=== PATIENT | male | born 1985 | race Caucasian/White ===

== ENCOUNTER 2020-04-07 10:37 | Emergency (ER) | payer SELFPAY ==
--- NOTE | 2020-04-07 11:05 | EDM.PDOC ---
ED HPI GENERAL MEDICAL PROBLEM - General Chief Complaint: Abdominal Pain Stated Complaint: ABDOMINAL SWELLING Time Seen by Provider: 04/07/20 10:38 Source of Information: Reports: Patient History Limitations: Reports: No Limitations - History of Present Illness INITIAL COMMENTS - FREE TEXT/NARRATIVE: HISTORY AND PHYSICAL: History of present illness: Patient is a 35-year-old male who presents to the emergency room with complaints of abdominal and lower extremity swelling. 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 He states he has been on "water pills" to help control any swelling he has experienced previously (unsure of name/dose). He recently moved here from [place] and ran out of these prescriptions 2 weeks ago. Since not having this medication available to him he noticed the swelling to his abdomen and bilateral lower extremities. Patient denies any fever, chills, headache, change in vision, syncope or near syncope. Denies any chest pain, back pain, shortness of breath or cough. Denies any abdominal pain, nausea, vomiting, diarrhea, constipation or dysuria. Has not noted any blood in urine or stool. Patient has been eating and drinking appropriately. Review of systems: As per history of present illness and below otherwise all systems reviewed and negative. Past medical history: As per history of present illness and as reviewed below otherwise noncontributory. Surgical history: As per history of present illness and as reviewed below otherwise noncontributory. Social history: See social history for further information Family history: As per history of present illness and as reviewed below otherwise noncontributory. Physical exam: General: Well-developed and well-nourished 35-year-old male. Alert and oriented. Nontoxic appearing and in no acute distress. HEENT: Atraumatic, normocephalic, pupils equal and reactive bilaterally, negative for conjunctival pallor or scleral icterus, mucous membranes moist, throat clear, neck supple, nontender, trachea midline. No drooling or trismus noted. No meningeal signs. No hot potato voice noted. Lungs: Right side is diminished to auscultation, breath sounds equal bilaterally , chest nontender. Breathe easy. Heart: S1S2, regular rate and rhythm without overt murmur Abdomen: Semi-firm, moderately distended/ascites, mild generalized tenderness. Midline scar noted to abdomen with a upper abdominal midline hernia. Negative for costovertebral tenderness. Pelvis: Stable nontender. Genitourinary/Rectal: Deferred. Skin: Healed linear midline scar noted to abdomen (substernal to suprapubic). Intact, warm, dry. No lesions or rashes noted. Extremities: Atraumatic, moves all extremities per self without difficulty or deficits, negative for cords or calf pain. +2 pitting edema to bilateral lower extremities, ankle/foot. Neurovascular unremarkable. Neuro: Awake, alert, oriented. Cranial nerves II through XII unremarkable. Cerebellum unremarkable. Motor and sensory unremarkable throughout. Exam nonfocal. Notes: Dr Epps directly involved in patient care. Nursing staff was able to get a hold of the patient's pharmacy in [place] to confirm his medication list which was last filled in December 2019. He was taking Lasix 40 mg once daily in spironolactone [address] shows bilateral pleural effusions worse on the right side. Mild right bilateral atelectasis. Fairly severe ascites. Findings of cirrhosis within the liver. Poorly seen spleen which may have been resected (patient has had splenectomy). Ill-defined varicosities believed to be present. Calcified in the area of the portal vein and splenic vein possibly due to old calcified clot. Dr Epps assessed patient after diagnostics have returned. Feels this patient needs IR for ascites tap; which I agree with. Dr Solomon, KIMBERLEY PRINCE at [facility] in [place] was consulted and he is agreeable to accepting this patient. This information was shared with the patient and he is hesitant for transfer stating he does not want to leave town and is concerned he may not have a ride back. I did request that he call family and discuss his ER visit today. The risks of leaving AGAINST MEDICAL ADVICE were thoroughly reviewed with the patient. He accepts those risks and does sign out AGAINST MEDICAL ADVICE. I will refill his Lasix and spironolactone. Patient was positive for nitrates in his urine, Cipro prescribed- urine culture added. He states he will see his primary care provider next week and/or return to the emergency room if his symptoms worsen. Diagnostics: CBC, CMP, Ammonia, UA, Abd/Pelvis CT, INR Therapeutics: Lasix Prescription: Lasix Spironolactone Cipro Impression: Ascites Cirrhosis Bilateral Pleural effusion UTI Left AMA Plan: Patient left AMA Definitive disposition and diagnosis as appropriate pending reevaluation and review of above. Abdominal Pain Pain Score (Numeric/FACES): 2 - Related Data Allergies Allergy/AdvReac Type Severity Reaction Status Date / Time amoxicillin Allergy Hives Verified 04/07/20 10:58 hydromorphone [From Dilaudid] Allergy Cannot Verified 04/07/20 10:58 Remember Penicillins Allergy Hives Verified 04/07/20 10:58 Sulfa (Sulfonamide Allergy Hives Verified 04/07/20 10:58 Antibiotics) Home Meds: Home Meds Ciprofloxacin HCl [Cipro] 500 mg PO BID 7 Days #14 tablet 04/07/20 [Rx] Furosemide [Lasix] 40 mg PO DAILY #30 tablet 04/07/20 [Rx] Spironolactone [Aldactone] 25 mg PO DAILY #30 tab 04/07/20 [Rx] Water Pill? 04/07/20 [History] ED ROS GENERAL - Review of Systems Review Of Systems: Comprehensive ROS is negative, except as noted in HPI. ED EXAM, GI/ABD - Physical Exam Exam: See Below (See dictation) Course - Vital Signs Last Recorded V/S: Last Vital Signs Temp 97.1 F 04/07/20 11:04 Pulse 88 04/07/20 12:08 Resp 18 04/07/20 12:08 BP 130/72 04/07/20 12:08 Pulse Ox 96 04/07/20 12:08 - Orders/Labs/Meds Orders: Active Orders 24 hr Category Date Time Status CULTURE URINE [RM] Stat Lab 04/07/20 11:52 Received Labs: Laboratory Tests 04/07/20 04/07/20 04/07/20 Range/Units 11:31 11:31 11:31 WBC 9.03 (4.0-11.0) K/uL RBC 3.71 L (4.50-5.90) M/uL Hgb 12.9 L (13.0-17.0) g/dL Hct 36.9 L (38.0-50.0) % MCV 99.5 H (80.0-98.0) fL MCH 34.8 H (27.0-32.0) pg MCHC 35.0 (31.0-37.0) g/dL RDW Std Deviation 56.8 (28.0-62.0) fl RDW Coeff of Santi 16 H (11.0-15.0) % Plt Count 118 L (150-400) K/uL MPV 10.80 (7.40-12.00) fL Add Manual Diff YES Neutrophils % (Manual) 61 (48.0-80.0) % Lymphocytes % (Manual) 21 (16.0-40.0) % Monocytes % (Manual) 15 (0.0-15.0) % Eosinophils % (Manual) 3 (0.0-7.0) % Nucleated RBC % 0.0 /100WBC Absolute Seg Neuts 5.5 (1.4-5.7) Lymphocytes # (Manual) 1.9 (0.6-2.4) Monocytes # (Manual) 1.4 H (0.0-0.8) Eosinophils # (Manual) 0.3 (0.0-0.7) Nucleated RBCs # 0 K/uL INR Sodium 133 L (136-148) mmol/L Potassium 3.4 L (3.5-5.1) mmol/L Chloride 100 (98-107) mmol/L Carbon Dioxide 29.6 (21.0-32.0) mmol/L BUN 5 L (7.0-18.0) mg/dL Creatinine 0.8 (0.8-1.3) mg/dL Est Cr Clr Drug Dosing 138.76 mL/min Estimated GFR (MDRD) > 60.0 ml/min Glucose 93 (74-106) mg/dL Calcium 7.6 L (8.5-10.1) mg/dL Total Bilirubin 3.0 H (0.2-1.0) mg/dL AST 56 H (15-37) IU/L ALT 27 (14-63) IU/L Alkaline Phosphatase 160 H (46-116) U/L Ammonia 35 (19-54) ug/dL Total Protein 7.0 (6.4-8.2) g/dL Albumin 1.9 L (3.4-5.0) g/dL Globulin 5.1 H (2.6-4.0) g/dL Albumin/Globulin Ratio 0.4 L (0.9-1.6) Urine Color Urine Appearance Urine pH (5.0-8.0) Ur Specific Cammal (1.001-1.035) Urine Protein (NEGATIVE) mg/dL Urine Glucose (UA) (NEGATIVE) mg/dL Urine Ketones (NEGATIVE) mg/dL Urine Occult Blood (NEGATIVE) Urine Nitrite (NEGATIVE) Urine Bilirubin (NEGATIVE) Urine Ictotest Urine Urobilinogen (<2.0) EU/dL Ur Leukocyte Esterase (NEGATIVE) Urine RBC (0-2/HPF) Urine WBC (0-5/HPF) Ur Epithelial Cells (NONE-FEW) Urine Bacteria (NEGATIVE) Urine Mucus (NONE-MOD) 04/07/20 04/07/20 Range/Units 11:31 11:52 WBC (4.0-11.0) K/uL RBC (4.50-5.90) M/uL Hgb (13.0-17.0) g/dL Hct (38.0-50.0) % MCV (80.0-98.0) fL MCH (27.0-32.0) pg MCHC (31.0-37.0) g/dL RDW Std Deviation (28.0-62.0) fl RDW Coeff of Santi (11.0-15.0) % Plt Count (150-400) K/uL MPV (7.40-12.00) fL Add Manual Diff Neutrophils % (Manual) (48.0-80.0) % Lymphocytes % (Manual) (16.0-40.0) % Monocytes % (Manual) (0.0-15.0) % Eosinophils % (Manual) (0.0-7.0) % Nucleated RBC % /100WBC Absolute Seg Neuts (1.4-5.7) Lymphocytes # (Manual) (0.6-2.4) Monocytes # (Manual) (0.0-0.8) Eosinophils # (Manual) (0.0-0.7) Nucleated RBCs # K/uL INR 1.39 Sodium (136-148) mmol/L Potassium (3.5-5.1) mmol/L Chloride (98-107) mmol/L Carbon Dioxide (21.0-32.0) mmol/L BUN (7.0-18.0) mg/dL Creatinine (0.8-1.3) mg/dL Est Cr Clr Drug Dosing mL/min Estimated GFR (MDRD) ml/min Glucose (74-106) mg/dL Calcium (8.5-10.1) mg/dL Total Bilirubin (0.2-1.0) mg/dL AST (15-37) IU/L ALT (14-63) IU/L Alkaline Phosphatase (46-116) U/L Ammonia (19-54) ug/dL Total Protein (6.4-8.2) g/dL Albumin (3.4-5.0) g/dL Globulin (2.6-4.0) g/dL Albumin/Globulin Ratio (0.9-1.6) Urine Color ORANGE Urine Appearance CLEAR Urine pH 6.5 (5.0-8.0) Ur Specific Cammal 1.015 (1.001-1.035) Urine Protein NEGATIVE (NEGATIVE) mg/dL Urine Glucose (UA) NEGATIVE (NEGATIVE) mg/dL Urine Ketones NEGATIVE (NEGATIVE) mg/dL Urine Occult Blood TRACE-LYSED H (NEGATIVE) Urine Nitrite POSITIVE H (NEGATIVE) Urine Bilirubin MODERATE H (NEGATIVE) Urine Ictotest POSITIVE Urine Urobilinogen >=8.0 H (<2.0) EU/dL Ur Leukocyte Esterase SMALL H (NEGATIVE) Urine RBC 0-1 (0-2/HPF) Urine WBC 0-2 (0-5/HPF) Ur Epithelial Cells FEW (NONE-FEW) Urine Bacteria FEW (NEGATIVE) Urine Mucus LIGHT (NONE-MOD) Meds: Medications Discontinued Medications Generic Name Dose Route Start Last Admin Trade Name Freq PRN Reason Stop Dose Admin Furosemide 40 mg 04/07/20 11:13 04/07/20 11:59 Lasix PO 04/07/20 11:14 40 mg ONETIME ONE Administration Departure - Departure Time of Disposition: 13:34 Disposition: Against Medical Advice 07 Clinical Impression: Pleural effusion, bilateral, Urinary tract infection in male, Left against medical advice Cirrhosis of liver Qualifiers: Hepatic cirrhosis type: alcoholic cirrhosis Ascites presence: with ascites Qualified Code(s): K70.31 - Alcoholic cirrhosis of liver with ascites Ascites Qualifiers: Ascites type: due to alcoholic cirrhosis Qualified Code(s): K70.31 - Alcoholic cirrhosis of liver with ascites - Discharge Information Prescriptions: Ciprofloxacin HCl [Cipro] 500 mg PO BID 7 Days #14 tablet Furosemide [Lasix] 40 mg PO DAILY #30 tablet Spironolactone [Aldactone] 25 mg PO DAILY #30 tab Referrals: PCP,None [Primary Care Provider] - Forms: ED Department Discharge Sepsis Event Note - Focused Exam Vital Signs: Vital Signs Temp Pulse Resp BP Pulse Ox 04/07/20 12:08 88 18 130/72 96 05/16/20 11:04 97.1 F 82 18 112/67 97 Date Exam was Performed: 04/07/20 Time Exam was Performed: 13:31 - My Orders Last 24 Hours: My Active Orders 04/07/20 11:52 CULTURE URINE [] Stat - Assessment/Plan Last 24 Hours: My Active Orders 04/07/20 11:52 CULTURE URINE [RM] Stat
[2020-04-07] MEDS ORDERED: Furosemide 40 MG Tab PO ONE (11:13)
--- NOTE | 2020-04-07 11:38 | CT ---
CT abdomen and pelvis Technique: Multiple axial sections were obtained from above the dome of the diaphragm inferiorly through the pubic symphysis. Intravenous and oral contrast not utilized. Comparison: No prior abdominal imaging is available. Findings: Small to moderate size right-sided pleural effusion is seen with minimal left-sided pleural effusion. Areas of atelectasis are noted within the right lung base adjacent to the pleural effusion. There is a large amount of ascites being seen within the abdomen which extends into the pelvis. Liver is small and nodular in contour compatible with cirrhosis. Normal appearing spleen is not visualized. Gallbladder shows no calcified gallstones. Calcification is seen within the portal vein and within the splenic vein possibly due to old calcified clot. Adrenal glands are poorly seen. Varicosities are noted. Pancreas shows no discrete abnormality. Kidneys show no abnormal calcifications or hydronephrosis. Surgical clips seen within the left upper abdomen. Aorta shows mild atherosclerotic calcification without aneurysm. No retroperitoneal adenopathy or mesenteric abnormalities are seen. No discrete pelvic abnormality is appreciated. Bone window settings were reviewed which shows no acute osseous finding. Impression: 1. Bilateral pleural effusions worse on the right side. Mild right basilar atelectasis. 2. Fairly severe ascites. 3. Findings of cirrhosis within the liver. Poorly seen spleen which may have been resected. 4. Ill-defined varicosities believed to be present. 5. Calcification in the area of the portal vein and splenic vein possibly due to old calcified clot. Diagnostic code #5 This report was dictated in MDT
[2020-04-07 12:03] LABS: BLOOD UREA NITROGEN,BUN 5 mg/dL (7.0-18.0); CARBON DIOXIDE,CO2 29.6 mmol/L (21.0-32.0); CHLORIDE,CL 100 mmol/L (98-107); GLUCOSE RANDOM 93 mg/dL (74-106); POTASSIUM,K 3.4 mmol/L (3.5-5.1); SODIUM,NA 133 mmol/L (136-148)
== END 2020-04-07 13:35 | disposition left against medical advice (07) ==
LOC: MW.ED 10:37
DX: N39.0 Urinary tract infection, site not specified (principal); J90 Pleural effusion, not elsewhere classified; K70.31 Alcoholic cirrhosis of liver with ascites; Z88.1 Allergy status to other antibiotic agents; Z88.5 Allergy status to narcotic agent; Z88.2 Allergy status to sulfonamides
CPT/HCPCS: 36415; 74176; 80053; 81001; 82140; 85025; 85610; 87086; 99284; A9270